=== PATIENT | female | born 1975 | race Native Hawaiian/Other Pacific Islander ===

== ENCOUNTER 2018-01-02 09:34 | Outpatient (CLI) | payer OTHER | END 2018-01-02 23:17 | disposition home or self-care (01) | LOC: US 09:34 → LABW 09:34 → US 23:17 | DX: R13.12 Dysphagia, oropharyngeal phase (principal); K21.0 Gastro-esophageal reflux disease with esophagitis ==

== ENCOUNTER 2018-01-03 09:46 | Outpatient (CLI) | payer OTHER ==
[2018-01-03 10:24] LABS: PLATELET COUNT 348 K/uL (152-353)
[2018-01-03 10:46] LABS: POTASSIUM 4.2 mmol/L (3.6-5.2)
== END 2018-01-03 20:07 | disposition home or self-care (01) ==
LOC: LABW 09:46
PROVIDERS: Physician Assistant
DX: R13.12 Dysphagia, oropharyngeal phase (principal); K21.0 Gastro-esophageal reflux disease with esophagitis
CPT/HCPCS: 36415; 80053; 80061; 82306; 84439; 84443; 85027; 86318

== ENCOUNTER 2018-02-13 10:59 | Outpatient (CLI) | payer OTHER | END 2018-02-13 23:25 | disposition home or self-care (01) | LOC: RAD 10:59 | DX: K21.0 Gastro-esophageal reflux disease with esophagitis (principal); R13.12 Dysphagia, oropharyngeal phase ==

== ENCOUNTER 2019-07-09 21:48 | Emergency (ER) | payer OTHER ==
[~2019-07-09] VITALS: Ht 154.9 cm; Wt 53.5 kg
[2019-07-09] MEDS ORDERED: OMEPRAZOLE20 M1 PO (22:14)
[2019-07-09 23:21] LABS: POTASSIUM 3.7 mmol/L (3.6-5.2)
[2019-07-09 23:28] LABS: PLATELET COUNT 362 K/uL (152-353)
[2019-07-10 00:17] VITALS: BP 118/63; TEMP 98.3
== END 2019-07-10 00:21 | disposition home or self-care (01) ==
LOC: ED 21:48
PROVIDERS: Emergency Medicine
DX: J98.01 Acute bronchospasm (principal); D64.89 Other specified anemias
CPT/HCPCS: 36415; 80053; 83036; 85027; 85379; 94664; 96360; 96375; 99284; J2930

== ENCOUNTER 2019-07-24 12:05 | Emergency (ER) | payer OTHER ==
[~2019-07-24] VITALS: Ht 154.9 cm; Wt 53.5 kg
[~2019-07-24 12:05] MED LIST: OMEPRAZOLE20 M1 PO
[2019-07-24 13:00] VITALS: BP 133/89; TEMP 97.9
== END 2019-07-24 13:00 | disposition home or self-care (01) ==
LOC: ED 12:05
DX: N75.1 Abscess of Bartholin's gland (principal)
CPT/HCPCS: 99282

== ENCOUNTER 2020-08-23 14:40 | Outpatient (CLI) | payer OTHER | END 2020-08-23 19:27 | disposition home or self-care (01) | LOC: RAD 14:40 | PROVIDERS: ATTEND Internal Medicine | DX: M79.671 Pain in right foot (principal) ==

== ENCOUNTER 2020-08-24 08:46 | Outpatient (CLI) | payer OTHER ==
[2020-08-24 09:32] LABS: PLATELET COUNT 352 K/uL (152-353)
[2020-08-24 09:35] LABS: POTASSIUM 3.7 mmol/L (3.6-5.2)
== END 2020-08-24 23:14 | disposition home or self-care (01) ==
LOC: LABW 08:46
PROVIDERS: ATTEND Internal Medicine
DX: D64.9 Anemia, unspecified (principal); R73.9 Hyperglycemia, unspecified
CPT/HCPCS: 36415; 80053; 80061; 82607; 82728; 82747; 83540; 83550; 85027; 85044